=== PATIENT | male | born 1975 | race Two or more races ===

== ENCOUNTER 2018-11-19 18:55 | Emergency (ER) | payer OTHER ==
[~2018-11-19] VITALS: Ht 172.7 cm; Wt 88.0 kg
[2018-11-19] MEDS ORDERED: HYDROcodone/APAP 5/325 TABLET PO ONE (19:30)
--- NOTE | 2018-11-19 19:43 | NUR ---
REPORT RECEIVED FROM TESSA WATSON
[2018-11-19] MEDS ORDERED: HYDROcodone/APAP 5/325 TABLET ONE (19:45)
--- NOTE | 2018-11-19 19:50 | NUR ---
PT MEDICATED PER EMAR, TOLERATED WELL. C SPINE PRECAUTIONS IN PLACE. PT IS A&O, RESPS EVEN AND UNLABORED. NEURO INTACT. PT DENIES BOWEL/BLADDER INCONTINENCE, C/O BILATERL LOWER BACK PAIN AND MIDLINE NECK PAIN. AWAITING CT RESULTS AND DISPO.
[2018-11-19 20:40] VITALS: BP 142/85
--- NOTE | 2018-11-19 20:41 | NUR ---
PT'S TRANSLATING FOR PT FROM [place] TO [place], AT PT REQUEST. PT GIVEN DC INSTRUCTIONS AND SCRIPT. PT EDUCATED REGARDING FLEXIRIL AND NAPROXEN RX. PT GIVEN DC INSTRUCTIONS IN [place]. PT VERBALIZES UNDERSTANDING OF RN EDUCATION. PT REPORTS PAIN IMPROVED S/P NORCO. C COLLAR REMOVED BY EDPA. PT A&O, RESPS EVEN AND UNLABORED. PT EDUCATED NOT TO DRIVE TODAY D/T MED GIVEN. PT AMB TO DC DESK ACCOMPANIED BY AND SON, GAIT STEADY. NADN AT DC.
== END 2018-11-19 20:42 | disposition home or self-care (01) ==
LOC: ED 20:15
DX: S39.012A Strain of muscle, fascia and tendon of lower back, initial encounter (principal); S16.1XXA Strain of muscle, fascia and tendon at neck level, initial encounter; M51.36 Other intervertebral disc degeneration, lumbar region; E11.9 Type 2 diabetes mellitus without complications; V49.49XA Driver injured in collision with other motor vehicles in traffic accident, initial encounter; Y93.89 Activity, other specified; Y92.89 Other specified places as the place of occurrence of the external cause; Y99.8 Other external cause status
CPT/HCPCS: 72110; 72125; 99284